=== PATIENT | female | born 1950 | race Caucasian/White ===

== ENCOUNTER 2023-12-30 12:30 | Outpatient (CLI) | payer OTHER, MEDICAID | END 2023-12-30 12:31 | disposition home or self-care (01) | LOC: PET 12:30 | PROVIDERS: ATTEND Thoracic Surgery (Cardiothoracic Vascular Surgery) | DX: Z01.818 Encounter for other preprocedural examination (principal); C15.5 Malignant neoplasm of lower third of esophagus; R63.4 Abnormal weight loss; R13.10 Dysphagia, unspecified | CPT/HCPCS: 78815; A9552 ==